=== PATIENT | male | born 1985 | race Caucasian/White ===

== ENCOUNTER 2016-12-18 20:58 | Emergency (ER) | payer BC ==
--- NOTE | 2016-12-18 21:23 | EDM.PDOC ---
ED HPI ENT - General Chief Complaint: ENT Problem Stated Complaint: TOOTH PAIN Time Seen by Provider: 12/18/16 21:15 Source of Information: Reports: Patient History Limitations: Reports: No limitations - History of Present Illness INITIAL COMMENTS - FREE TEXT/NARRATIVE: HISTORY AND PHYSICAL: History of present illness: [31-year-old male complaining of left upper wisdom tooth toothache. He has a cavity. It's been painful but there is no swelling. No fevers chills sweats or shaking chills. No difficulty with swallowing. No voice changes or difficulty breathing. Patient has no pain with range of motion of his neck and no headache no chest pain or shortness of breath] Review of systems: As per history of present illness and below otherwise all systems reviewed and negative. Past medical history: As per history of present illness and as reviewed below otherwise noncontributory. Surgical history: As per history of present illness and as reviewed below otherwise noncontributory. Social history: No reported history of drug or alcohol abuse. Family history: As per history of present illness and as reviewed below otherwise noncontributory. Physical exam: Well-appearing patient in no acute distress no facial swelling or asymmetry. Cavity #16 with no adjacent gingival swelling or mass remainder intraoral exam unremarkable HEENT: Normocephalic, atraumatic, pupils normal and symmetrical, supple neck, no meningismus, normal color Lungs: Normal and symmetrical chest wall excursion bilateral with no tachypnea or increased work of breathing, grossly normal chest exam Heart: No tachycardia in triage Abdomen: Normal-appearing, nondistended, no visible mass or asymmetry Pelvis: Normal-appearing Genitourinary: Deferred Rectal exam: Deferred Extremities: Atraumatic, normal use and range of motion, no visible evidence of gross neurovascular compromise Neuro: Awake, alert, oriented. Normal and appropriate mental status. Cranial nerves grossly unremarkable. Motor function normal. Nonfocal neurologic exam. Diagnostics: [] Therapeutics: [] Impression: [] Plan: [Signs and symptoms consistent with uncomplicated caries and toothache. Will prescribe penicillin recommend NSAIDs followup dentist as soon as possible. No evidence of systemic illness or collection requiring drainage or intervention. Patient agrees with outpatient followup and strict return precautions given] Definitive disposition and diagnosis as appropriate pending reevaluation and review of above. - Related Data Allergies/ADRs: Allergies Allergy/AdvReac Type Severity Reaction Status Date / Time No Known Allergies Allergy Verified 12/18/16 21:08 Home Meds: Home Meds Penicillin V Potassium [IJP: Penicillin V Potassium] 500 mg PO .EVERY 6 HOURS # 40 tab 12/18/16 [Rx] Past Medical History HEENT History: Reports: None Cardiovascular History: Reports: None Respiratory History: Reports: None Gastrointestinal History: Reports: None Genitourinary History: Reports: None Psychiatric History: Reports: None - Infectious Disease History Infectious Disease History: Reports: None - Past Surgical History HEENT Surgical History: Reports: None Cardiovascular Surgical History: Reports: None Respiratory Surgical History: Reports: None GI Surgical History: Reports: None Social & Family History - Tobacco Use Smoking Status *Q: Current Every Day Smoker Years of Tobacco use: 10 Packs/Tins Daily: 0.4 Second Hand Smoke Exposure: No ED ROS ENT - Review of Systems Review Of Systems: See Below (History of present illness) ED EXAM, ENT - Physical Exam Exam: See Below (History of present illness) Course - Vital Signs Last Recorded V/S: Last Vital Signs Temp 37.3 C 12/18/16 21:08 Pulse 70 12/18/16 22:10 Resp 16 12/18/16 22:10 BP 140/70 12/18/16 22:10 Pulse Ox 98 12/18/16 22:10 - Orders/Labs/Meds Meds: Medications Discontinued Medications Generic Name Dose Route Start Last Admin Trade Name Samantha PRN Reason Stop Dose Admin Ketorolac Tromethamine 60 mg 12/18/16 21:24 12/18/16 21:48 Toradol IM 12/18/16 21:25 60 mg ONETIME ONE Administration Penicillin V Potassium 500 mg 12/18/16 21:24 12/18/16 21:50 Veetids PO 12/18/16 21:25 500 mg Q12HR ONE Administration Departure - Departure Time of Disposition: 21:22 Disposition: Home, Self-Care 01 Condition: good Clinical Impression: Toothache, Dental caries Prescriptions: Penicillin V Potassium [IJP: Penicillin V Potassium] 500 mg PO .EVERY 6 HOURS # 40 tab Instructions: Dental Caries Referrals: PCP,None [Primary Care Provider] - Forms: ED Department Discharge Additional Instructions: You have a cavity of your left upper wisdom tooth was called #16. You have no abscess that requires surgical draining. Finish prednisone as prescribed you've been given a dose tonight and he can continue it in the morning with your prescription. Take 800 mg of ibuprofen every 6 hours and 1 g of Tylenol every 4 hours as needed. Followup with your dentist as soon as possible and return immediately for fevers headaches stiff neck new severe or worsening symptoms
[2016-12-18] MEDS ORDERED: Penicillin V Potassium 500 MG Tab PO ONE (21:24)
[2016-12-18] MEDS ORDERED: Ketorolac 60 MG/2 ML SDV IM ONE (21:24)
== END 2016-12-18 22:10 | disposition home or self-care (01) ==
LOC: MW.ED 20:58
DX: K02.9 Dental caries, unspecified (principal); F17.210 Nicotine dependence, cigarettes, uncomplicated
CPT/HCPCS: 96372; 99282; A9270; J1885; 99283